=== PATIENT | female | born 1975 | race Caucasian/White ===

== ENCOUNTER → 2019-11-20 14:08 | Outpatient (CLI) | payer OTHER, SELFPAY ==
--- NOTE | 2019-11-20 14:08 | US_ITS ---
PROCEDURE: US TRANSVAGINAL CLINICAL INDICATION: Heavy painful periods, heavy bleeding COMPARISON: US PTV US PELVIS-TRANSVAGINAL ONLY from 08/27/2015 FINDINGS: The uterus is retroverted. Combined endometrial thickness is 11 mm. The uterus measures 7 x 4 x 5 cm. There is increased echogenicity within the endometrium at the fundal area. This area measures 6 x 5 mm and could be due to an endometrial polyp. The left ovary is 3.7 x 2.6 cm and contains a 2 sent cyst and a smaller 9 mm cyst. There is a 16 x 14 mm area of heterogeneous echogenicity consistent with a fibroid. IMPRESSION: Endometrial thickness is upper normal. There is increased echogenicity in the fundal aspect of the endometrium suspicious for uterine polyp Heterogeneous echogenicity and the body uterus on the right 16 x 14 mm and may be due to a fibroid. Dictated by: Nain Pena MD 11/20/2019 17:11 Nain Pena MD in [place] 11/20/2019 17:11
== END ==
PROVIDERS: PCP Family Medicine; Visit Provider Obstetrics & Gynecology
DX: R10.2 Pelvic and perineal pain (principal); N93.8 Other specified abnormal uterine and vaginal bleeding
CPT/HCPCS: 76830

== ENCOUNTER → 2019-12-17 14:36 | Outpatient (CLI) | payer OTHER, SELFPAY ==
[2019-12-17 15:01] LABS: Basophils # 0.1 K/mm3 (0-0.2); Basophils % 0.7 % (0.1-2.0); Eosinophils # 0.4 K/mm3 (0.0-0.4); Eosinophils % 3.3 % (0.1-12.0); Hematocrit 37.6 % (37.0-47.0); Hemoglobin 12.4 g/dL (12.2-16.2); Lymphocytes # 2.7 K/mm3 (0.7-4.5); Lymphocytes % 20.7 % (10-50); Mean Corpuscular HGB Conc 32.9 g/dL (31.8-35.4); Mean Corpuscular Hemoglobin 26.1 pg (27.0-31.2); Mean Corpuscular Volume 79.4 fl (81-99); Mean Platelet Volume 7.1 fl (7.4-10.4); Monocytes # 0.5 K/mm3 (0.1-1.0); Monocytes % 3.9 % (1.7-9.3); Neutrophils # 9.3 K/mm3 (1.8-7.8); Neutrophils % 71.4 % (37.0-80.0); Platelet Count 385 K/mm3 (142-424); Red Blood Count 4.73 M/mm3 (4.20-5.40); Red Cell Distribution Width 22.3 % (11.5-17.5); White Blood Count 13.1 K/mm3 (4.8-10.8)
[2019-12-17 15:41] LABS: Alanine Aminotransferase 52 U/L (12-78); Albumin/Globulin Ratio 1.3 (1.1-1.8); Alkaline Phosphatase 154 U/L (38-126); Anion Gap 14.4 mEq/L (5-15); Aspartate Amino Transferase 66 U/L (14-36); Bilirubin,Total 0.3 mg/dl (0.2-1.3); Blood Urea Nitrogen 11 mg/dl (7-17); Calcium 9.5 mg/dl (8.4-10.2); Carbon Dioxide 29 mmol/L (22.0-30.0); Chloride 98 mmol/L (98-107); Estimated Glomerular Filt Rate 109 ml/min (>60); GFR (African American) 131 ML/MIN (>60); Globulin 3.1 g/dL (1.3-3.2); Glucose 94 mg/dl (74-100); Potassium 4.4 mmoL/L (3.5-5.1); Sodium 137 mmol/L (136-145); Total Protein,Serum 7.1 g/dl (6.3-8.2)
[2019-12-17 15:42] LABS: HCG Qualitative, Serum Negative (Negative)
[2019-12-17 16:49] LABS: Coronavirus 19 IgG Antibody Negative (Negative); Coronavirus 19 IgM Antibody Negative (Negative)
== END ==
PROVIDERS: Visit Provider Obstetrics & Gynecology
DX: Z01.818 Encounter for other preprocedural examination (principal); Z01.84 Encounter for antibody response examination
CPT/HCPCS: 36415; 80053; 84703; 85025; 86328

== ENCOUNTER 2019-12-19 06:22 | Day surgery (SDC) | payer OTHER, SELFPAY ==
[2019-12-17 09:52] VITALS: BMI 20.9
[2019-12-19] VITALS (9 sets, daily range): BP systolic 102–154; BP diastolic 64–94; PULSE 76–94; RESP 16–20; TEMP 36.4–36.6; O2SAT 93–97
[2019-12-19 07:26] LABS: POC Glucose,Bedside 100 (70-110)
--- NOTE | 2019-12-19 08:13 | HMH.ANESCL ---
[facility] Anesthesia Checklist - Patient Identification Patient Identification: Arm Band, Verbal (Name & ) - Structural Data Admitted From: Home Planned Operative Procedure/s: D&C, hysteroscopy, Myosure, novasure Consent for Planned Operative Procedure(s) Verified: Yes Verified Documents: Surgical Consent, History and Physical - NPO Status Verified Time NPO: 22:00 - Chart Verification Results Verified: CBC, BMP - Additional verifications Fingerstick Blood Glucose: 100 Patient : No (Pending) Anesthesia Reactions: No Hx Blood Transfusions: Yes (FEB 2000) Blood Transfusion Reaction: No - Airway Assessment C-Spine Mobility Assessed: Yes TMJ Mobility Assessed: Yes Dentition: Edentulous - Neurological Assessment Level of Consciousness: Awake, Alert, Appropriate, Follows Commands Hx Seizures: Yes Numbness or tingling in extremities: No - Anesthesia Plan Anesthesia Risk discussed: Yes Anesthesia Plan: Verified ASA Class: III Anesthesia Type: General (LMA) [facility] History I have reviewed the patient's past medical history: Yes Medical History: Reports:: Cancer (ovarian), Diabetes Mellitus Type 2, Gastroesophageal Reflux Disease(GERD), Hepatitis (Hep C untreated), Hyperlipidemia, Seizures (LAST SEIZURE 3 MONTHS AGO) Denies:: Diabetes Mellitus Type 1, Internal Pacemaker, MRSA *Have you ever received a pneumonia vaccine?: No *Have you received a flu vaccine this season?: Yes Other Medical History: Reports: Hypothyroidism. Denies: Blood Transfusion Reaction Anesthesia experience/problems:: No prior complications Other Surgeries: Yes: Cholecystectomy. No: Pacemaker Amputation: No Fractures: No Comment: Right oophorectomy - *Social History Last grade of school completed: High school graduate Smoking Status: Current every day smoker Tobacco Type: cigarettes # Packs/Day (cigarettes): 1 Alcohol Intake: never Substance Use Type: marijuana *Occupational Status:: disabled Housing: house *Travel in the last 8 weeks: None Family Hx:: No significant family history
[2019-12-19 08:34] LABS: Microscopic, Urine URINE MICROSCOPIC (MICROSCOPIC)
[2019-12-19 08:38] LABS: Appearance,Urine CLEAR (Clear); Bilirubin,Urine Negative (Negative); Blood, Urine Negative (Negative); Color,Urine YELLOW (Yellow); Glucose,Urine (UA) Negative (Negative); Ketones,Urine Negative (Negative); Leukocyte Esterase,Urine Negative (Negative); Nitrate,Urine Negative (Negative); Protein,Urine Negative (Negative); Specific Gravity, Urine 1.025 (1.005-1.030); Urobilinogen,Urine 0.2 EU/dl (0.2)
[2019-12-19 08:45] LABS: Amphetamine/Metha Screen,Urine Negative ng/ml (<1000)
[2019-12-19 08:46] LABS: Barbiturates Screen,Urine Negative ng/ml (<200)
[2019-12-19 08:47] LABS: Bacteria,Urine 2+ /lpf; Benzodiazepines Screen,Urine Negative ng/ml (<200); Cannabinoid Screen,Urine Positive ng/ml (<50)
[2019-12-19 08:48] LABS: Cocaine Screen,Urine Negative ng/ml (<300)
[2019-12-19 08:49] LABS: Methadone Screen,Urine Negative ng/ml (<300)
[2019-12-19 08:51] LABS: Opiate Screen,Urine Positive ng/ml (<300); Phencyclidine Screen,Urine Negative ng/ml (<25)
--- NOTE | 2019-12-19 09:42 | P.PN_ITS ---
[facility] Anesthesia Record Part I Intake, IV Amount: 600 Estimated blood loss (mL): 5 Urine output (mL): 50 Blood Products used (#): none Blood Pressure: 116/75 SaO2: 93 Pulse Rate: 76 Respiratory Rate: 16 Temperature: 97.6 F Patient is:: Drowsy, Nasal O2, Stable Stable to PACU at:: 09:40
--- NOTE | 2019-12-19 10:12 | HMH.OPNOTE ---
Date of procedure: 12/19/19 Pre-op Diagnosis:: 1. Heavy menstrual bleeding 2. DUB 3. Pelvic pain 4. Endometrial polyp Post-op Diagnosis:: same Procedure performed:: D&C Hysteroscopy, Myosure excision of endometrial polyp Novasure endometrial ablation Surgeon:: Cynthia Lobato MD MONITORING ENGINEER:: Johnathon Ventura Anesthesia: GETA Estimated blood loss (mL): 5 Operative findings:: glandular proliferation endometrial polyp anterior cavity wall Operative note:: The patient was taken to the operating room and general anesthesia was administered. She was prepped/draped in lithotomy position. The anterior lip of the cervix was grasped with a single tooth tenaculum and the cervix was dilated with Vela dilators of serially increasing size until the external os was able to accomodate the Myosure hysteroscope. The hysteroscope was advanced through the cervix and into the uterine cavity, which was distended with LR. Once the uterus was sufficiently distended, the cavity was evaluated and revealed diffuse glandular proliferation and a small polyp on the anterior cavity wall. The Myosure was inserted into the hysteroscope and the polyp was excised successfully and without complication or significant fluid deficit. The endometrial cavity was sampled on all sides. After the conclusion of this procedure, the Myosure and hysteroscope were removed from the uterus. The uterine cavity sounded to a length of 4.5cm. The Novasure was inserted through the cervix and expanded to fit the width of the uterus, with a width of 4.4cm. After a successful cavity assessment, the device was deployed and the endometrial ablation was completed in 87 seconds. Once the device had turned off, the Novasure was removed from the uterus and the hysteroscope was reinserted into the uterine cavity. The cavity appeared diffusely cauterized. The hysteroscope was removed from the uterus and all instruments removed from the vagina. The tenaculum site was hemostatic. All sponge/lap/needle/instrument counts correct x2. Total EBL: 5 cc. The patient was taken out of lithotomy position, extubated and taken to the PACU in stable condition. Condition: stable Disposition: PACU Specimens:: uterine polyp, endometrial curettings Complications:: none
--- NOTE | 2019-12-19 10:14 | PC.NURSE ---
1008-detailed report called to SUNIL Brumfield 1010-pt transported to post op via stretcher w/alex rails up and left in care of SUNIL Brumfield and SUNIL Orellana with bed locked in lowest position, vss, pt stable
--- NOTE | 2019-12-19 16:34 | HMH.ANESII ---
[facility] Anesthesia Record Part II Discharge Time: 10:10 Destination: [facility] PACU nurse assessment reviewed?: Yes Patient Condition:: Good Anesthesia Complications:: None Swallowing reflex intact?: Yes Cyanosis?: No Blood Pressure: 129/84 Pulse Rate: 92 Temperature: 97.8 F Mental Status: Alert & Oriented Pain level:: 0 Nausea and/or vomitting:: None Intake, IV Amount: 1,000
[2019-12-23 11:30] LABS: POC Glucose,Bedside < 40 (70-110)
[2019-12-23 11:30] LABS: POC Glucose,Bedside 130 (70-110)
== END 2019-12-19 10:40 | disposition home or self-care (01) ==
PROVIDERS: Nurse Anesthetist, Certified Registered; PCP Family Medicine; Visit Provider Obstetrics & Gynecology
PROC: 0U5B8ZZ Destruction of Endometrium, Via Natural or Artificial Opening Endoscopic (ICD-10-PCS; CPT 58563; principal; 2019-12-19 08:30)
DX: N93.8 Other specified abnormal uterine and vaginal bleeding (principal); N92.0 Excessive and frequent menstruation with regular cycle; N84.0 Polyp of corpus uteri; D25.9 Leiomyoma of uterus, unspecified; Z98.51 Tubal ligation status; Z85.43 Personal history of malignant neoplasm of ovary; E11.9 Type 2 diabetes mellitus without complications; K21.9 Gastro-esophageal reflux disease without esophagitis; B19.20 Unspecified viral hepatitis C without hepatic coma; E78.5 Hyperlipidemia, unspecified; R56.9 Unspecified convulsions; E03.9 Hypothyroidism, unspecified
CPT/HCPCS: 58563; 80305; 81001; 82962; 87086; 96374; J2405